=== PATIENT | male | born 1960 | race Caucasian/White ===

== ENCOUNTER 2018-07-31 16:53 | Emergency (ER) | payer MEDICAID ==
[~2018-07-31] VITALS: Ht 175.3 cm; Wt 81.8 kg
[2018-07-31] MEDS ORDERED: LISI1TAB9 PEG (16:59)
[2018-07-31] MEDS ORDERED: LIB25 PO (16:59)
[2018-07-31] MEDS: ONDANSETRON HCL 4 MG TABLET PO ONE (18:00)
[2018-07-31 18:50] VITALS: BP 139/83
== END 2018-07-31 19:02 | disposition home or self-care (01) ==
LOC: EMS 16:54
DX: F10.20 Alcohol dependence, uncomplicated (principal); I10 Essential (primary) hypertension; F41.9 Anxiety disorder, unspecified; F17.290 Nicotine dependence, other tobacco product, uncomplicated; Y90.9 Presence of alcohol in blood, level not specified
CPT/HCPCS: 99283; Q0162